=== PATIENT | male | born 1970 | race Caucasian/White ===

== ENCOUNTER 2017-02-21 16:20 | Emergency (ER) | payer SELFPAY ==
[~2017-02-21] VITALS: Ht 165.1 cm; Wt 68.0 kg
[2017-02-21 16:22] VITALS: BP 125/73
== END 2017-02-21 16:55 | disposition left against medical advice (07) ==
LOC: ER 16:43
DX: R13.10 Dysphagia, unspecified (principal); Z53.21 Procedure and treatment not carried out due to patient leaving prior to being seen by health care provider